=== PATIENT | female | born 1940 | race Caucasian/White ===

== ENCOUNTER 2016-08-30 13:52 | Emergency (ER) | payer MEDICARE, OTHER ==
[2016-08-30 14:05] LABS: BASOPHILS 0.3 %; BASOPHILS ABSOLUTE 0.03 10/3/uL (0.0-0.16); EOSINOPHILS 0.3 %; EOSINOPHILS ABSOLUTE 0.03 10/3/uL (0.0-0.53); ER CBC TAT 0 Hrs 05 Mins; HEMOGLOBIN 15.2 g/dL (12.0-16.0); IMMATURE GRANULOCYTES 0.4 %; IMMATURE GRANULOCYTES ABSOLUTE 0.04 10/3/uL (0.0-0.11); LYMPHOCYTES 31.2 %; LYMPHOCYTES ABSOLUTE 3.15 10/3/uL (0.67-4.30); MANUAL DIFF NO %; MEAN CORPUS HGB CONC 33.8 g/dL (32.0-36.0); MEAN CORPUSCULAR HEMOGLOB 32.4 pg (26.0-34.0); MEAN CORPUSCULAR VOLUME 95.9 fL (80-100); MONOCYTES 7.9 %; NEUTROPHILS 59.9 %; NEUTROPHILS ABSOLUTE 6.06 10/3/uL (2.02-8.40); PLATELET COUNT 261 10/3/uL (150-400); RBC DISTRIBUTION WIDTH 14.3 % (12.0-16.0); RED CELL COUNT 4.69 10/6/uL (4.0-5.6); WHITE BLOOD CELLS 10.1 10/3/uL (4.5-10.5)
[2016-08-30 14:21] LABS: BUN (BLOOD UREA NITROGEN) 29 MG/DL (6-23); CHEST PAIN PROFILE TAT 0 Hrs 21 Mins; CHLORIDE, SERUM 103 MMOL/L (96-112); CO2 (CARBON DIOXIDE) 28 MMOL/L (24-34); GFR AFRICAN AMERICAN 63 ML/MIN (>=60); GFR NON AFRICAN AMERICAN 54 ML/MIN (>=60); GLUCOSE, SERUM 137 MG/DL (60-99); POTASSIUM, SERUM 4.3 MMOL/L (3.5-5.3); SODIUM, SERUM 140 MMOL/L (135-148); TROPONIN I <0.02 NG/ML (<0.05)
[2016-08-30 14:22] LABS: INTERNATIONAL NORMAL RATI 1.3 UNITS (-); PARTIAL THROMBO TIME 30.1 SEC (22.5-37.2); PROTIME (NOT ORD) 16.3 SEC (12.0-14.5)
[2016-11-04] MEDS ORDERED: ELIQUIS 5 MG TAB5 MG PO (08:50)
[2016-11-04] MEDS ORDERED: ASAB PO (08:50)
[2016-11-04] MEDS ORDERED: GLUCXL5 PO (08:51)
[2016-11-04] MEDS ORDERED: FISH-EPA1000 MG PO (08:51)
[2016-11-04] MEDS ORDERED: CLARIT10 PO (08:52)
[2016-11-04] MEDS ORDERED: LEVOTHYROXIN25 MCG PO (08:52)
[2016-11-04] MEDS ORDERED: MULTIVITAMI1 PO (08:53)
[2016-11-04] MEDS ORDERED: LOP25 PO (08:53)
[2016-11-04] MEDS ORDERED: COZ25 PO (08:53)
[2016-11-04] MEDS ORDERED: ZOL100 PO (08:54)
[2016-11-04] MEDS ORDERED: ACET500CAP PO (08:54)
[2016-11-04] MEDS ORDERED: ORAZINC110 MG PO (08:54)
[2016-11-04] MEDS ORDERED: [UNRECOGNIZED DRUG - MIXTURE] (10:05)
== END 2016-08-30 17:35 | disposition home or self-care (01) ==
LOC: ER 13:52
PROVIDERS: Emergency Medicine
DX: I48.91 Unspecified atrial fibrillation (principal); I10 Essential (primary) hypertension; E11.9 Type 2 diabetes mellitus without complications; Z88.8 Allergy status to other drugs, medicaments and biological substances
CPT/HCPCS: 71020; 80048; 83735; 84484; 85025; 85610; 85730; 93005; 99284; A9270-GY